=== PATIENT | female | born 1945 | race Caucasian/White ===

== ENCOUNTER 2018-04-24 10:33 | Emergency (ER) | payer OTHER ==
[~2018-04-24] VITALS: Wt 83.9 kg
[2018-04-24] MEDS ORDERED: RAMIPRIL10 MG PO (10:48)
[2018-04-24] MEDS ORDERED: ROSUVASTATIN CA20 MG PO (10:48)
== END 2018-04-24 12:16 | disposition home or self-care (01) ==
LOC: ED 10:33
DX: S20.212A Contusion of left front wall of thorax, initial encounter (principal); Z79.899 Other long term (current) drug therapy; W01.198A Fall on same level from slipping, tripping and stumbling with subsequent striking against other object, initial encounter; Y93.89 Activity, other specified; Y92.89 Other specified places as the place of occurrence of the external cause; Y99.8 Other external cause status